=== PATIENT | female | born 1970 | race Hispanic/Latino ===

== ENCOUNTER → 2017-04-14 | Outpatient (CLI) | payer OTHER ==
--- NOTE | 2017-04-14 11:39 | MRI ---
Study: MRI of the Right Elbow. Indication: RT ELBOW PAIN Technique: Multiplanar, multi sequence MRI of the right elbow was obtained without intravenous contrast. Comparison: None. FINDINGS: Common extensor tendinosis noted with intermediate grade interstitial tearing at the tendon origin. No full-thickness transection. Prior sprain of the proximal radial collateral ligament with slight laxity. Common flexor tendinosis. Ulnar collateral ligament intact. Biceps, brachialis, triceps tendon insertions intact. No acute fracture or advanced osteoarthritis. Ulnar nerve intact. Tiny elbow effusion noted. IMPRESSION: Common extensor tendinosis with intermediate grade interstitial tearing of the tendon origin as well as a prior sprain of the radial collateral ligament. Common flexor tendinosis without tear. Tiny elbow effusion. Electronically signed by: Rudolph Stein MD 04/14/2017 11:38 AM CDT
== END | disposition home or self-care (01) ==
LOC: MRI 10:20
DX: M75.21 Bicipital tendinitis, right shoulder (principal)

== ENCOUNTER → 2018-04-27 | Outpatient (CLI) | payer BC, OTHER ==
--- NOTE | 2018-04-28 19:29 | MAM ---
EXAM DESCRIPTION: 3D Screening BILATERAL : Digital Mammography. CLINICAL HISTORY: 47 years Female SCREEN . No complaints. No personal or family history of breast cancer. Childbirth. Premenopausal. No HRT. Lifetime risk of developing breast cancer (Tyrer-Cuzick model)(%): 11.5. COMPARISON: 2-D digital screening bilateral mammography 04/03/2016. Digital diagnostic left breast mammography 04/25/2016. TECHNIQUE: Bilateral CC and MLO projection full-field images, Digital tomosynthesis mammographic technique. Bilateral digital 2-D full-field MLO images. CAD not utilized. FINDINGS: The breast parenchymal density pattern is: Heterogeneously dense breast tissue, which may obscure small masses. No skin thickening or nipple retraction. Bilateral scattered solitary microcalcifications. No new focal, stellate mass or density, focal asymmetry , and no suspicious microcalcifications bilaterally. Stable mammograms compared to prior study. Taking into account, differences in mammographic technique. IMPRESSION: Benign exam. BIRAD CATEGORY: 2 BENIGN FINDINGS. RECOMMENDATIONS: FOLLOW UP: Routine digital bilateral screening, one year interval from March 2018. Written communication explaining the IMPRESSION and follow-up, will be mailed to the patient and referring health care provider. According to the [employer], yearly mammograms are recommended starting at age 40 and continuing as long as a woman is in good health. Any breast change noted on a breast self-exam should be reported promptly to the patient's healthcare provider. Breast MRI is recommended for women with an approximately 20-25% or greater lifetime risk of breast cancer, including women with a strong family history of breast or ovarian cancer and women who have been treated for Hodgkin's disease. A negative mammographic report should not delay tissue diagnosis in patients with significant clinical history or physical findings. Extremely dense breast tissue limits the sensitivity of digital mammography. Electronically signed by: Willy Glass MD 04/28/2018 7:28 PM CDT
== END ==
LOC: MAMMO 08:00
PROVIDERS: ATTEND General Practice
DX: Z12.31 Encounter for screening mammogram for malignant neoplasm of breast (principal)